=== PATIENT | female | born 1960 | race Caucasian/White ===

== ENCOUNTER 2017-11-26 09:22 | Emergency (ER) | payer BC ==
--- NOTE | 2017-11-26 11:21 | RAD ---
HISTORY: Left calf swelling with pain COMPARISONS: None relevant TECHNIQUE: Multiple transverse and longitudinal ultrasound images were obtained of the left lower extremity from the level of the common femoral vein inferiorly through to the infrapopliteal veins using grayscale, color Doppler, and spectral Doppler imaging with and without compression and with augmentation. Comparison images were obtained of the contralateral common femoral vein. FINDINGS: VEINS: The venous system of the left lower extremity is compressible throughout its course, with normal flow on color Doppler imaging and normal response to augmentation on spectral Doppler imaging. SOFT TISSUES: Unremarkable. OTHER FINDINGS: None. IMPRESSION: NO LEFT LOWER EXTREMITY DEEP VEIN THROMBOSIS
[2017-11-26 11:41] VITALS: BP 114/68
--- NOTE | 2017-11-27 06:01 | ED ---
Lower Extremity - HPI Summary HPI Summary: Patient is a 57-year-old female presenting to the ED with concern for possible DVT. She states over the past month she has had left leg pain radiating up into the left posterior thigh. She states the symptoms did begin after she wore high shoes which is not normal for her. 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 She denies any right leg pain however though. Symptoms worsened after returning from a 6 hour car trip. She denies any redness to the area, but endorses a tightness or squeezing to the calf. Symptoms worse with dorsiflexion. She is a type II diabetic which is controlled with metformin and she takes no anticoagulation medications. Vital signs are stable on arrival. She denies any shortness of breath or chest pain. She denies oral contraceptive use and does not smoke. - History of Current Complaint Chief Complaint: EDExtremityLower Stated Complaint: LT LEG SWELLING Time Seen by Provider: 11/26/17 09:43 Mechanism Of Injury: Other - no injury Onset of Pain: Days Onset/Duration: Days Severity Initially: Mild Severity Currently: Mild Pain Intensity: 0 Pain Scale Used: 0-10 Numeric Timing: Constant Location: Is Discrete @ - left calf Character Of Pain: Aching Associated Signs And Symptoms: Negative: Swelling, Redness, Bruising, Weakness, Dizziness, Abdominal Pain, Knee Pain Aggravating Factor(s): Standing, Ambulation, Movement, Stairs Alleviating Factor(s): Rest, Elevation Able to Bear Weight: Yes - Risk Factors Gout Risk Factors: Age Over 40, Diabetes Septic Arthritis Risk Factor: Negative - Allergies/Home Medications Allergies/Adverse Reactions: Allergies Allergy/AdvReac Type Severity Reaction Status Date / Time aspirin Allergy Unknown Verified 11/26/17 09:37 Reaction Details Penicillins Allergy Unknown Verified 11/26/17 09:37 Reaction Details Home Medications: Home Medications Enalapril TAB* [Vasotec TAB*] 10 mg PO DAILY 11/26/17 [History Confirmed ] glipiZIDE [Glipizide ER] 5 mg PO DAILY 11/26/17 [History Confirmed 11/26/17] metFORMIN* [Glucophage 500 MG TAB *] 500 mg PO BID 11/26/17 [History Confirmed 11/26/17] PMH/Surg Hx/FS Hx/Imm Hx Previously Healthy: Yes Endocrine/Hematology History: Reports: Hx Diabetes Cardiovascular History: Reports: Hx Hypertension - Cancer History Cancer Type, Location and Year: breast CA- DCIS - Surgical History Surgery Procedure, Year, and Place: left breast mastectomy. right breast reduction. Gall bladder. x2 - Immunization History Hx Pertussis Vaccination: No Immunizations Up to Date: Unable to Obtain/Confirm Infectious Disease History: No Infectious Disease History: Denies: Hx Clostridium Difficile, Hx Hepatitis, Hx Human Immunodeficiency Virus (HIV), Hx of Known/Suspected MRSA, Hx Shingles, Hx Tuberculosis, Hx Known/ Suspected VRE, Hx Known/Suspected VRSA, History Other Infectious Disease, Traveled Outside the [place] in Last 30 Days - Social History Occupation: Employed Full-time Lives: With Family Alcohol Use: None Hx Substance Use: No Substance Use Type: Reports: None Hx Tobacco Use: No Smoking Status (MU): Never Smoked Tobacco Have You Smoked in the Last Year: No Review of Systems Constitutional: Negative Negative: Fever, Chills, Fatigue, Skin Diaphoresis Negative: Palpitations, Chest Pain Negative: Shortness Of Breath, Cough Negative: Abdominal Pain, Vomiting Positive: no symptoms reported, see HPI Positive: Myalgia - left leg pain Skin: Negative Negative: Rash, Bruising Negative: Anxious All Other Systems Reviewed And Are Negative: Yes Physical Exam Triage Information Reviewed: Yes Vital Signs On Initial Exam: Initial Vitals Temp Pulse Resp BP Pulse Ox 97 F 68 18 170/80 100 11/26/17 09:37 11/26/17 09:37 11/26/17 09:37 11/26/17 09:37 11/26/17 09:37 Vital Signs Reviewed: Yes Appearance: Positive: Well-Appearing, No Pain Distress Skin: Positive: Warm, Skin Color Reflects Adequate Perfusion Head/Face: Positive: Normal Head/Face Inspection Neck: Positive: Nontender, No Lymphadenopathy Respiratory/Lung Sounds: Positive: Clear to Auscultation Musculoskeletal: Positive: Pain @ - left leg, Rangel Sign Left, Edema Left - non pitting in ankle. Negative: Rangel Sign Right, Edema Right Neurological: Positive: Sensory/Motor Intact, Alert, Oriented to Person Place, Time, Speech Normal Psychiatric: Positive: Affect/Mood Appropriate AVPU Assessment: Alert Diagnostics - Vital Signs Vital Signs Temp Pulse Resp BP Pulse Ox 11/26/17 11:40 98 F 66 18 114/68 97 11/26/17 09:37 97 F 68 18 170/80 100 - Laboratory Lab Statement: Any lab studies that have been ordered have been reviewed, and results considered in the medical decision making process. Lower Extremity Course/Dx - Course Course Of Treatment: The patient is evaluated for possible DVT vs muscle ache/ strain. Ultrasound obtained which shows no evidence of a deep vein thrombosis. Patient is assured. The leg is non-erythematous and not warm. I've discussed heat to the area, ibuprofen, and elevation when swelling occurs. Patient is okay with this plan and discharged. She will follow back up with her PCP. - Diagnoses Provider Diagnoses: Muscle strain Discharge - Sign-Out/Discharge Documenting (check all that apply): Discharge/Admit/Transfer - Discharge Plan Condition: Stable Disposition: HOME Patient Education Materials: Muscle Strain (ED) Referrals: Melinda Rodrigez MD [Primary Care Provider] - Additional Instructions: Ibuprofen 600mg three times daily Moist heat to the area will help with discomfort - rice bag/corn bag Try to avoid overuse, tall shoes Elevate Compression stocking if swollen - Billing Disposition and Condition Condition: STABLE Disposition: HOME
== END 2017-11-26 11:39 | disposition home or self-care (01) ==
LOC: ED 09:22
DX: S86.912A Strain of unspecified muscle(s) and tendon(s) at lower leg level, left leg, initial encounter (principal); E11.9 Type 2 diabetes mellitus without complications; Z79.84 Long term (current) use of oral hypoglycemic drugs; I10 Essential (primary) hypertension; Z88.0 Allergy status to penicillin; Z85.3 Personal history of malignant neoplasm of breast
CPT/HCPCS: 99281